=== PATIENT | male | born 1970 | race Caucasian/White ===

== ENCOUNTER 2022-09-19 14:50 | Emergency (ER) | payer OTHER ==
[2022-09-19] MEDS: Ketorolac 60 MG/2 ML SDV IM ONE (15:44)
[2022-09-19] MEDS: Tamsulosin 0.4 MG Cap.ER PO ONE (15:47)
[2022-09-20] MEDS ORDERED: Tamsulosin 0.4 MG Cap.ER PO ONE (15:30)
== END 2022-09-19 17:05 | disposition home or self-care (01) ==
LOC: LB.ED 14:50
DX: N13.2 Hydronephrosis with renal and ureteral calculous obstruction (principal); Z88.1 Allergy status to other antibiotic agents; Z79.84 Long term (current) use of oral hypoglycemic drugs; Z79.899 Other long term (current) drug therapy
CPT/HCPCS: 36415; 74176; 80053; 81001; 85025; 96372; 99284; A9270-GY; J1885